=== PATIENT | female | born 1995 | race Caucasian/White ===

== ENCOUNTER 2017-10-13 22:20 | Emergency (ER) | payer OTHER ==
[~2017-10-13] VITALS: Ht 154.9 cm; Wt 63.5 kg
[2017-10-13 22:29] VITALS: BP_SYST 126
[2017-10-13] MEDS ORDERED: LORazepam 1 MG TABLET PO ONE (23:15)
[2017-10-13] MEDS ORDERED: KETOROLAC TROMETHAMINE 30 MG VIAL IM ONE (23:15)
[2017-10-14 00:01] VITALS: BP_SYST 119
== END 2017-10-14 00:01 | disposition home or self-care (01) ==
LOC: SED 22:20
DX: S16.1XXA Strain of muscle, fascia and tendon at neck level, initial encounter (principal); V89.2XXA Person injured in unspecified motor-vehicle accident, traffic, initial encounter; Y93.89 Activity, other specified; Y92.410 Unspecified street and highway as the place of occurrence of the external cause; Y99.8 Other external cause status
CPT/HCPCS: 81025; 96372; 99283; J1885